=== PATIENT | female | born 1980 | race Two or more races ===

== ENCOUNTER 2019-06-09 08:23 | Outpatient (CLI) | payer OTHER | END 2019-06-09 08:27 | disposition home or self-care (01) | LOC: NUCLEAR 08:23 | DX: E05.00 Thyrotoxicosis with diffuse goiter without thyrotoxic crisis or storm (principal) | CPT/HCPCS: 78012; A9531 ==

== ENCOUNTER 2019-06-10 09:25 | Outpatient (CLI) | payer OTHER | END 2019-06-10 09:40 | disposition home or self-care (01) | LOC: NUCLEAR 09:25 | DX: E05.00 Thyrotoxicosis with diffuse goiter without thyrotoxic crisis or storm (principal) | CPT/HCPCS: 78013; A9512 ==